=== PATIENT | male | born 1940 | race Asian ===

== ENCOUNTER 2017-10-23 18:27 | Emergency (ER) | payer OTHER ==
[2017-10-23 18:41] VITALS: BP 134/75; PULSE 65; TEMP 97.7; BMI 27.4
--- NOTE | 2017-10-23 19:28 | PDOC ---
History of Present Illness - General History Source: Patient Exam Limitations: No Limitations - History of Present Illness Initial Comments: 10/23/17 19:41 The patient is a 77 year old male, with a significant PMH of hypertension, hypercholesterolemia, DM, who presents to the emergency department with productive cough with thick yellow sputum for 2 weeks. The patient states he had a runny nose two weeks ago at the beginning of his symptoms which has since resolved. The patient states his productive cough with yellow sputum is worse at night. He reports taking OTC cold medication and cough drops which he bought at [employer] with mild relief. The patient states he has an upcoming appointment with his PCP Dr. Holland on November 07. The patient denies any history of asthma or respiratory illness. The patient denies chest pain, shortness of breath, wheezing, headache and dizziness. Denies fever, chills, nausea, vomit, diarrhea and constipation. Denies dysuria, frequency, urgency and hematuria. Allergies: NKA Social history: No EtOH use, tobacco use or recreational drug use. PCP: Dr. Jose Holland <Gibran Maldonado - Last Filed: 10/23/17 19:52> <Bernie Hagen - Last Filed: 10/24/17 01:51> - General Chief Complaint: Respiratory Stated Complaint: COUGH Time Seen by Provider: 10/23/17 18:56 Past History <Gibran Maldonado - Last Filed: 10/23/17 19:52> - Past Medical History Anemia: No Asthma: No Cancer: Yes (COLON) Cardiac Disorders: No CVA: No COPD: No CHF: No Dementia: No Diabetes: Yes GI Disorders: Yes Disorders: No HTN: Yes Hypercholesterolemia: Yes Liver Disease: No Seizures: No Thyroid Disease: No - Surgical History Abdominal Surgery: Yes (COLON) Appendectomy: No Cardiac Surgery: No Cholecystectomy: No Lung Surgery: No Neurologic Surgery: No Orthopedic Surgery: Yes ([employer]) - Suicide/Smoking/Psychosocial Hx Smoking History: Never smoked Have you smoked in the past 12 months: No Information on smoking cessation initiated: No Hx Alcohol Use: No Drug/Substance Use Hx: No Substance Use Type: None <Bernie Hagen - Last Filed: 10/24/17 01:51> - Past Medical History Allergies/Adverse Reactions: Allergies Allergy/AdvReac Type Severity Reaction Status Date / Time No Known Allergies Allergy Verified 10/23/17 18:28 Home Medications: Ambulatory Orders Metoprolol Succinate [Toprol XL -] 50 mg PO DAILY 02/26/13 Sitagliptin Phos/Metformin HCl [Janumet 50-500 mg Tablet] 1 each PO DAILY Aspirin [ASA -] 81 mg PO DAILY #0 02/28/14 Amlodipine Besylate 10 mg PO DAILY 10/23/17 Aspirin [Aspirin EC] 81 mg PO DAILY 10/23/17 Azithromycin [Zithromax 250mg Tablets -] 250 mg PO UTDICT #6 tab 10/23/17 Azithromycin [Zithromax 250mg Tablets -] 250 mg PO UTDICT #6 tab 10/23/17 Benzonatate [Tessalon Pearls -] 200 mg PO TID #30 cap 10/23/17 Benzonatate [Tessalon Pearls -] 200 mg PO TID PRN #30 cap 10/23/17 Calcium Carbonate/Vitamin D3 [Oyster Shell Calcium-Vit D Tab] 1 each PO DAILY Cholecalciferol (Vitamin D3) [Vitamin D] 2,000 unit PO DAILY 10/23/17 Hydrocodone Bit/Homatrop Me-Br [Hydrocodone Compound Syrup] 5 ml PO TID PRN #60 ml MDD 15 ml 10/23/17 Meloxicam [Mobic] 15 mg PO DAILY 10/23/17 Olmesartan Medoxomil mg PO DAILY 10/23/17 [place]-3 Acid Ethyl Esters [Lovaza -] 1 gm PO BID 10/23/17 Tamsulosin HCl [Flomax] 0.4 mg PO DAILY 10/23/17 Review of Systems - Review of Systems Comments:: 10/23/17 19:42 GENERAL/CONSTITUTIONAL: No fever or chills. No weakness. HEAD, EYES, EARS, NOSE AND THROAT: (+)Runny nose (resolved). No change in vision. No ear pain or discharge. No sore throat. CARDIOVASCULAR: No chest pain or shortness of breath. RESPIRATORY: (+) Productive cough with yellow sputum. No wheezing, or hemoptysis. GASTROINTESTINAL: No nausea, vomiting, diarrhea or constipation. GENITOURINARY: No dysuria, frequency, or change in urination. MUSCULOSKELETAL: No joint or muscle swelling or pain. No neck or back pain. SKIN: No rash NEUROLOGIC: No headache, vertigo, loss of consciousness, or change in strength/ sensation. ENDOCRINE: No increased thirst. No abnormal weight change. HEMATOLOGIC/LYMPHATIC: No anemia, easy bleeding, or history of blood clots. ALLERGIC/IMMUNOLOGIC: No hives or skin allergy. <Gibran Maldonado - Last Filed: 10/23/17 19:52> *Physical Exam - Vital Signs Last Vital Signs Temp Pulse Resp BP Pulse Ox 97.7 F 65 18 134/75 96 10/23/17 18:27 10/23/17 18:27 10/23/17 18:27 10/23/17 18:27 10/23/17 18:27 - Physical Exam Comments: 10/23/17 19:43 GENERAL: Awake, alert, and fully oriented, in no acute distress HEAD: No signs of trauma EYES: PERRLA, EOMI, sclera anicteric, conjunctiva clear ENT: Auricles normal inspection, hearing grossly normal, nares patent, oropharynx clear without exudates. Moist mucosa NECK: Normal ROM, supple, no lymphadenopathy, JVD, or masses LUNGS: Breath sounds equal, clear to auscultation bilaterally. No wheezes, and no crackles HEART: Regular rate and rhythm, normal S1 and S2, no murmurs, rubs or gallops ABDOMEN: Soft, nontender, normoactive bowel sounds. No guarding, no rebound. No masses EXTREMITIES: Normal range of motion, no edema. No clubbing or cyanosis. No cords, erythema, or tenderness NEUROLOGICAL: Cranial nerves II through XII grossly intact. Normal speech, normal gait SKIN: Warm, Dry, normal turgor, no rashes or lesions noted. <Gibran Maldonado - Last Filed: 10/23/17 19:52> - Vital Signs Last Vital Signs Temp Pulse Resp BP Pulse Ox 97.7 F 65 18 134/75 96 10/23/17 18:27 10/23/17 18:27 10/23/17 18:27 10/23/17 18:27 10/23/17 18:27 <Bernie Hagen - Last Filed: 10/24/17 01:51> Progress Note - Progress Note Progress Note: Documentation has been prepared under my direction and personally reviewed by me in its entirety. I attest that this documented accurately reflects all work, treatment, procedures and medical decision making performed by me. <Bernie Hagen - Last Filed: 10/24/17 01:51> Medical Decision Making - Medical Decision Making As noted above, this 77-year-old man presents with a few week history of cough, now productive of whitish sputum. There is been no fever/wheezing/shortness of breath. Exam as noted. Chest x-ray performed: Preliminary interpretation by me-atelectasis versus early infiltrate left lower lobe. Patient will be started on azithromycin (Z-Gideon). Patient asked for cough suppressant medication. Prescriptions will be transmitted to pharmacy for Tessalon Perles to be used during the day for one patient needs to be fully alert and small (60 mL) prescription for hydrocodonehomatropine syrup, 5 mL by mouth as for severe cough up to 3 times a day. Meanwhile, patient should drink plenty fluids and rest. He should return to the emergency room if he has severe, persisting cough or experiences shortness of breath/wheezing <Bernie Hagen - Last Filed: 10/24/17 01:51> *DC/Admit/Observation/Transfer - Attestations Scribe Attestion: 10/23/17 19:43 Documentation prepared by Gibran Maldonado, acting as medical sonographer for Bernie Hagen MD. <Gibran Maldonado - Last Filed: 10/23/17 19:52> <Bernie Hagen - Last Filed: 10/24/17 01:51> Diagnosis at time of Disposition: Bronchitis - Discharge Dispostion Disposition: HOME Condition at time of disposition: Stable - Prescriptions Prescriptions: Azithromycin [Zithromax 250mg Tablets -] 250 mg PO UTDICT #6 tab Azithromycin [Zithromax 250mg Tablets -] 250 mg PO UTDICT #6 tab Benzonatate [Tessalon Pearls -] 200 mg PO TID PRN #30 cap PRN Reason: Cough Benzonatate [Tessalon Pearls -] 200 mg PO TID #30 cap Hydrocodone Bit/Homatrop Me-Br [Hydrocodone Compound Syrup] 5 ml PO TID PRN #60 ml MDD 15 ml PRN Reason: Cough - Referrals Referrals: Jose Holland MD [Primary Care Provider] - 1 week - Patient Instructions Printed Discharge Instructions: DI for Acute Bronchitis Additional Instructions: Rest; drink plenty fluids Azithromycin (Z-Gideon); start tonight and taper as directed Tessalon Perles 2 capsules up to 3 times a day as needed for mild to moderate cough Hydrocodone/homatropine syrup 1 teaspoon up to 3 times a day as needed for severe cough; this medication will make you sleepy Return to ER if you have shortness of breath/wheezing/high fever Follow-up with within 5 days - Post Discharge Activity
== END 2017-10-23 19:55 | disposition home or self-care (01) ==
LOC: FER 18:27
DX: J40 Bronchitis, not specified as acute or chronic (principal); E78.00 Pure hypercholesterolemia, unspecified; E11.9 Type 2 diabetes mellitus without complications; I10 Essential (primary) hypertension
CPT/HCPCS: 71046-TC-FY; 99283-25

== ENCOUNTER 2021-10-22 14:40 | Inpatient (IN) | payer OTHER ==
[2021-10-22 14:57] VITALS: BMI 24.7
[2021-10-22 16:25] LABS: BASO % 0.4 % (0-2.0); HEMATOCRIT 28.7 % (35.4-49); HEMOGLOBIN 9.8 GM/dL (11.7-16.9); LYMPH % 22.9 % (8-40); MCH 24.9 pg (25.7-33.7); MCHC 34.1 g/dl (32.0-35.9); MEAN PLT VOLUME 8.6 fl (7.5-11.1); MONO % 9.2 % (3.8-10.2); NEUT % 64.5 % (42.8-82.8); PLATELET COUNT 147 10^3/uL (134-434); RBC 3.93 M/mm3 (4.00-5.60); WHITE BLOOD COUNT 5.9 K/mm3 (4.0-10.0)
[2021-10-22 16:47] LABS: CALCIUM 8.5 mg/dL (8.5-10.1)
[2021-10-22 16:48] LABS: ALBUMIN 3.3 g/dl (3.4-5.0); BLOOD UREA NITROGEN 39.8 mg/dL (7-18)
[2021-10-22 16:51] LABS: CREATININE 1.8 mg/dL (0.55-1.3)
[2021-10-22 16:52] LABS: BILIRUBIN,TOTAL 0.4 mg/dL (0.2-1); TOT PROT 6.9 g/dl (6.4-8.2)
[2021-10-22] MEDS ORDERED: LACTATED RINGERS SOLUTION 1000 ML INFUS.BAG IV ONE (16:56)
[2021-10-23] MEDS ORDERED: TAMSULOSIN HCL 0.4 MG CAP PO SCH (08:30)
[2021-10-23] MEDS: INSULIN SLIDING SCALE (NOVOLOG) 1 VIAL SQ SCH ×2 (08:41→12:54)
[2021-10-23 08:57] LABS: BASO % 0.5 % (0-2.0); EOS % 4.1 % (0-4.5); HEMATOCRIT 31.1 % (35.4-49); HEMOGLOBIN 10.4 GM/dL (11.7-16.9); LYMPH % 27.2 % (8-40); MCH 24.3 pg (25.7-33.7); MCHC 33.5 g/dl (32.0-35.9); MEAN CELL VOLUME 72.7 fl (80-96); MEAN PLT VOLUME 8.7 fl (7.5-11.1); MONO % 7.9 % (3.8-10.2); NEUT % 60.3 % (42.8-82.8); PLATELET COUNT 158 10^3/uL (134-434); RBC 4.28 M/mm3 (4.00-5.60); RDW 15.8 % (11.9-15.9); WHITE BLOOD COUNT 5.8 K/mm3 (4.0-10.0)
[2021-10-23 09:57] LABS: CALCIUM 8.9 mg/dL (8.5-10.1)
[2021-10-23 09:58] LABS: ALBUMIN 3.5 g/dl (3.4-5.0); BLOOD UREA NITROGEN 34.5 mg/dL (7-18)
[2021-10-23 10:00] LABS: CREATININE 1.4 mg/dL (0.55-1.3)
[2021-10-23] MEDS ORDERED: LOSARTAN POTASSIUM 50 MG TABLET PO SCH (10:00)
[2021-10-23] MEDS ORDERED: OMEGA-3 ACID ETHYL ESTERS (FATTY-ACIDS) 1 GM CAPSULE (FP) PO SCH (10:00)
[2021-10-23] MEDS ORDERED: ASPIRIN 81 MG CHEWABLE TABLETS PO SCH (10:00)
[2021-10-23] MEDS ORDERED: HYDROCHLOROTHIAZIDE 12.5 MG CAPSULE (FP) PO SCH (10:00)
[2021-10-23] MEDS ORDERED: ASPIRIN COATED 81 MG TABLET.EC PO SCH (10:00)
[2021-10-23 10:02] LABS: TOT PROT 7.3 g/dl (6.4-8.2)
[2021-10-23 10:04] LABS: BILIRUBIN,TOTAL 0.8 mg/dL (0.2-1)
[2021-10-23] MEDS ORDERED: POTASSIUM CHLORIDE TABS 20 MEQ TABLET.ER (FP) PO ONE ×3 (12:45→13:03)
[2021-10-23] MEDS ORDERED: ASPIRIN COATED 81 MG TABLET.EC ONE ×2 (12:57→13:02)
[2021-10-23] MEDS ORDERED: HYDROCHLOROTHIAZIDE 25 MG TABLET (FP) ONE (12:57)
[2021-10-23] MEDS ORDERED: TAMSULOSIN HCL 0.4 MG CAP ONE ×2 (12:58→13:03)
[2021-10-23] MEDS ORDERED: LOSARTAN POTASSIUM 50 MG TABLET ONE ×2 (12:58→13:03)
[2021-10-23 15:03] VITALS: BP 135/64; PULSE 72; TEMP 97.6
[2021-10-23] MEDS ORDERED: ROSUVASTATIN CA 5 MG TABLET PO SCH (22:00)
== END 2021-10-23 19:52 | disposition home or self-care (01) | DRG 313 ==
LOC: JER 14:40 → JERBED 17:38
PROVIDERS: ADMIT Internal Medicine; ATTEND Internal Medicine
DX: R07.89 Other chest pain (principal); N17.9 Acute kidney failure, unspecified; I10 Essential (primary) hypertension; E11.9 Type 2 diabetes mellitus without complications; E78.5 Hyperlipidemia, unspecified; Z85.038 Personal history of other malignant neoplasm of large intestine
CPT/HCPCS: 36415; 71046-TC-FY; 78452-TC; 80053; 80061; 82962; 84484; 85025; 93005; 93010; 93017; 99285-25; A9502; C9803-CS; U0003; U0005

== ENCOUNTER 2023-04-10 13:05 | Emergency (ER) | payer OTHER ==
[2023-04-10 13:30] VITALS: RESP 18; BMI 24.6
[2023-04-10] MEDS ORDERED: ACETAMINOPHEN 1000 MG/100 ML BAG IVPB ONE (13:50)
[2023-04-10] MEDS ORDERED: ACETAMINOPHEN INJECTION 100 ML IVPB ONE (14:09)
[2023-04-10 14:13] LABS: BASO % 0.2 % (0-2.0); EOS % 0.6 % (0-4.5); HEMATOCRIT 37.9 % (35.4-49); HEMOGLOBIN 12.4 GM/dL (11.7-16.9); LYMPH % 9.2 % (8-40); MCH 24.3 pg (25.7-33.7); MCHC 32.8 g/dl (32.0-35.9); MEAN CELL VOLUME 74.1 fl (80-96); MEAN PLT VOLUME 8.8 fl (7.5-11.1); MONO % 4.5 % (3.8-10.2); NEUT % 85.5 % (42.8-82.8); PLATELET COUNT 168 10^3/uL (134-434); RBC 5.11 M/mm3 (4.00-5.60)
[2023-04-10 14:33] LABS: POTASSIUM 3.6 mmol/L (3.5-5.1)
[2023-04-10 14:35] LABS: ALBUMIN 3.6 g/dl (3.4-5.0); CALCIUM 9.1 mg/dL (8.5-10.1)
[2023-04-10 14:36] LABS: BLOOD UREA NITROGEN 26.1 mg/dL (7-18)
[2023-04-10 14:39] LABS: CREATININE 1.3 mg/dL (0.55-1.3)
[2023-04-10 14:40] LABS: BILIRUBIN,TOTAL 0.7 mg/dL (0.2-1); TOT PROT 8.3 g/dl (6.4-8.2)
[2023-04-10 18:39] VITALS: BP 145/65; PULSE 69; TEMP 97.8
== END 2023-04-10 18:51 | disposition home or self-care (01) ==
LOC: JER 13:05
PROC: 3E033NZ Introduction of Analgesics, Hypnotics, Sedatives into Peripheral Vein, Percutaneous Approach (ICD-10-PCS; principal; 2023-04-10)
DX: R11.2 Nausea with vomiting, unspecified (principal); R51.9 Headache, unspecified; R42 Dizziness and giddiness; Z20.822 Contact with and (suspected) exposure to COVID-19
CPT/HCPCS: 0241U-QW; 36415; 70450-TC; 80053; 83690; 84484; 85025; 93005; 93010; 99285-25

== ENCOUNTER 2024-03-28 08:50 | Observation (INO) | payer OTHER ==
[2024-03-28 09:11] VITALS: RESP 18; TEMP 97.5; BMI 23.1
[2024-03-28] MEDS ORDERED: MAG HYDROX/AL HYDROX/SIMETH 30 ML UNIT-DOSE CUP ONE (09:26)
[2024-03-28] MEDS ORDERED: FAMOTIDINE 10 MG TABLET ONE (09:26)
[2024-03-28] MEDS ORDERED: ACETAMINOPHEN 325 MG TABLET (FP) ONE (09:26)
[2024-03-28] MEDS: MAG HYDROX/AL HYDROX/SIMETH 30 ML UNIT-DOSE CUP PO ONE (09:47)
[2024-03-28] MEDS: FAMOTIDINE 10 MG TABLET PO ONE (09:47)
[2024-03-28] MEDS: ACETAMINOPHEN 500 MG TABLET (FP) PO ONE (09:48)
[2024-03-28 09:50] LABS: BASO % 0.4 % (0-2.0); EOS % 6.5 % (0-4.5); HEMATOCRIT 37.2 % (35.4-49); HEMOGLOBIN 12.3 GM/dL (11.7-16.9); LYMPH % 7.3 % (8-40); MCH 24.8 pg (25.7-33.7); MEAN CELL VOLUME 75.1 fl (80-96); MEAN PLT VOLUME 8.8 fl (7.5-11.1); NEUT % 78.8 % (42.8-82.8); PLATELET COUNT 136 10^3/uL (134-434); RBC 4.96 M/mm3 (4.00-5.60); RDW 16.4 % (11.9-15.9); WHITE BLOOD COUNT 5.8 K/mm3 (4.0-10.0)
[2024-03-28 09:57] LABS: INR 0.93 (0.83-1.09); PROTHROMBIN TIME (PATIENT) 10.7 SEC (9.7-13.0)
[2024-03-28 09:59] LABS: ACTIVATED PTT 30.2 SECONDS (25.2-36.5)
[2024-03-28 10:10] LABS: POTASSIUM 3.5 mmol/L (3.5-5.1)
[2024-03-28 10:12] LABS: ALBUMIN 3.7 g/dl (3.4-5.0); BLOOD UREA NITROGEN 32.4 mg/dL (7-18); CALCIUM 9.2 mg/dL (8.5-10.1)
[2024-03-28 10:16] LABS: CREATININE 1.5 mg/dL (0.55-1.3)
[2024-03-28 10:17] LABS: BILIRUBIN,TOTAL 0.5 mg/dL (0.2-1)
[2024-03-28] MEDS: LACTATED RINGERS SOLUTION 1000 ML INFUS.BAG IV ONE (10:34)
[2024-03-28 13:58] VITALS: BP 140/63; PULSE 62
== END 2024-03-28 15:10 | disposition left against medical advice (07) ==
LOC: JER 08:50 → JERBED 12:35
PROVIDERS: ADMIT Internal Medicine; ATTEND Internal Medicine
PROC: 3E0337Z Introduction of Electrolytic and Water Balance Substance into Peripheral Vein, Percutaneous Approach (ICD-10-PCS; principal; 2024-03-28)
DX: R94.31 Abnormal electrocardiogram [ECG] [EKG] (principal); I10 Essential (primary) hypertension; E11.9 Type 2 diabetes mellitus without complications; R06.02 Shortness of breath; R07.9 Chest pain, unspecified
CPT/HCPCS: 36415; 71045-TC-FY; 80053; 83690; 84484; 85025; 85610; 85730; 93005; 93010; 99285-25; G0378